=== PATIENT | male | born 1965 | race Caucasian/White ===

== ENCOUNTER 2020-12-27 09:46 | Emergency (ER) | payer OTHER, SELFPAY ==
--- NOTE | 2020-12-27 | ECG_ITS ---
Test Reason : DIZINESS Blood Pressure : / mmHG Vent. Rate : 058 BPM Atrial Rate : 058 BPM P-R Int : 144 ms QRS Dur : 094 ms QT Int : 390 ms P-R-T Axes : 054 052 053 degrees QTc Int : 382 ms Sinus bradycardia Otherwise normal ECG When compared with ECG of 05-OCT-2018 09:24, No significant change was found Referred By: Generic ED Physician Electronically Signed By:Marvin Holland
--- NOTE | ~2020-12-27 | CT_ITS ---
EXAMINATION: CT HEAD WITHOUT CONTRAST CLINICAL INFORMATION: Dizziness. History of [employer]ATOR shunt. COMPARISON: No prior available studies. TECHNIQUE: Contiguous axial imaging was performed from the skull base to vertex without intravenous administration of contrast. This CT examination was performed using dose optimization techniques as appropriate, variously including the following: *Automated exposure control *Adjustment of mA and/or kV according to patient size (this includes techniques or standardized protocols for targeted exams where dose is matched to indication/reason for exam; i.e. extremities or head) *Use of iterative reconstruction technique DLP: 719 mGy-cm FINDINGS: A right parietal [employer] shunt catheter is in place terminating in the frontal horn of the right lateral ventricle. There is a left frontal catheter which terminates in the frontal horn of the left lateral ventricle, connected to a reservoir at the left frontal scalp vertex. The right lateral ventricle is relatively decompressed. There is no disproportionate dilatation of the left lateral ventricle relative to the sulcal spaces. The third ventricle is relatively normal in caliber. The fourth ventricle appears normal. Patchy areas of low-density change present in the frontal white matter which may be due chronic gliosis from prior catheter placement. Bifrontal lavon holes noted. There is generalized parenchymal volume loss which is greater than expected for patient age. There is no evidence of acute intracranial hemorrhage or territorial infarction. No abnormal mass effect or midline shift is seen. Carcamo to white matter differentiation is well preserved. No extra-axial fluid collections are identified. The remaining osseous structures and soft tissues are normal. The mastoid air cells and visualized portions of the paranasal sinuses are well aerated. CT/CT head/brain wo con IMPRESSION: No acute intracranial pathology. Right parietal [employer] shunt catheter in place with asymmetric decompression of the right lateral ventricle relative to the left lateral ventricle. Otherwise, no disproportionate ventricular enlargement. Suggest correlation with shunt function. Left frontal catheter terminating in the frontal horn of the left lateral ventricle with a left frontal scalp vertex reservoir visible.
--- NOTE | ~2020-12-27 | XR_ITS ---
EXAMINATION: CHEST AND ABDOMEN CLINICAL INFORMATION: Check shunt course COMPARISON: None TECHNIQUE: PA and lateral chest and KUB. FINDINGS: PA and lateral views of the chest do not demonstrate any evidence of acute parenchymal disease, pneumothorax, or pleural effusion. Heart normal size. No evidence of pulmonary edema. There is hyperinflation of the lungs. A right-sided shunt catheter is seen in place with a small what appears to be nonocclusive kink at the level of the superior aspect of the right clavicle. The shunt tube then is seen to course to the abdomen with its tip lying about the right lower pelvis. No disruption of the tube is identified. There is a normal bowel gas pattern without evidence of dilated loops of large or small bowel. Phleboliths seen about the pelvis. Visualized bones essentially unremarkable. XR/XR KUB IMPRESSION: Hyperinflation lungs without acute parenchymal disease. Normal bowel gas pattern within the abdomen and pelvis. Right-sided shunt catheter seen and appears intact along its course to the lower right pelvis. There is a small nonocclusive appearing kink at superior margin of the right clavicle.
--- NOTE | ~2020-12-27 | XR_ITS ---
EXAMINATION: CHEST AND ABDOMEN CLINICAL INFORMATION: Check shunt course COMPARISON: None TECHNIQUE: PA and lateral chest and KUB. FINDINGS: PA and lateral views of the chest do not demonstrate any evidence of acute parenchymal disease, pneumothorax, or pleural effusion. Heart normal size. No evidence of pulmonary edema. There is hyperinflation of the lungs. A right-sided shunt catheter is seen in place with a small what appears to be nonocclusive kink at the level of the superior aspect of the right clavicle. The shunt tube then is seen to course to the abdomen with its tip lying about the right lower pelvis. No disruption of the tube is identified. There is a normal bowel gas pattern without evidence of dilated loops of large or small bowel. Phleboliths seen about the pelvis. Visualized bones essentially unremarkable. XR/XR chest 2V IMPRESSION: Hyperinflation lungs without acute parenchymal disease. Normal bowel gas pattern within the abdomen and pelvis. Right-sided shunt catheter seen and appears intact along its course to the lower right pelvis. There is a small nonocclusive appearing kink at superior margin of the right clavicle.
[2020-12-27 12:48] VITALS: BP 121/77; PULSE 56; RESP 18; TEMP 36.6; O2SAT 97; BMI 24.3
[2020-12-27 14:00] VITALS: BP 122/78; PULSE 62; RESP 18; TEMP 36.6; O2SAT 97
--- NOTE | 2020-12-27 14:29 | ED_ITS ---
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 today while doing telehealth visit with associated increas ed heart rate, walking off balance, and coldness in feet. Admits symptoms are improved at present. Denies headache, visual changes/loss, nausea/vomiting, CP/SOB, abdominal pain, LE edema MD elicited complaint: difficulty walking Related Data Home Medications Medication Instructions Recorded Confirmed cyclosporine [Restasis] 1 drp OPHTHALMIC (EYE) Q12H 12/27/20 12/27/20 omeprazole 20 mg PO BID@0630,1630 12/27/20 12/27/20 Allergies Allergy/AdvReac Type Severity Reaction Status Date / Time phenytoin [From DILANTIN] Allergy Severe Rash Verified 12/27/20 13:05 Review of Systems Review of Systems: Constitutional: No Weight loss, No Fever, No Chills ENT/Mouth: No Nasal Congestion, No Sinus Pain, No Hoarseness, No sore throat, No Rhinorrhea, No Swallowing Difficulty Eyes: No Eye Pain, No Vision Changes Cardiovascular: No Chest Pain, No SOB, No Edema, + Palpitations Respiratory: No Cough, No Dyspnea Gastrointestinal: No Nausea, No Vomiting, No Diarrhea, No Abdominal pain Genitourinary: No Dysuria, No Urinary Frequency, No Hematuria, Musculoskeletal: No joint pain, No Myalgias, No Joint Swelling Skin: No Skin Lesions, No rash Neuro: No Weakness, No Numbness, +Paresthesias, No Loss of Consciousness, +feeling off balance, No Headache Yes all other systems are reviewed and are negative Neurologic: Denies Abnormal speech present [facility] Past Medical History Attestation statement: The following information was validated with the patient. Social History Social History Advance Directives: No Advance Directives Information Provided: Yes Physical Exam Vital Signs: Vital Signs: Last Vital Signs Temp 98 F 12/27/20 14:00 Pulse 55 12/27/20 15:37 Resp 14 12/27/20 15:37 BP 117/75 12/27/20 15:37 Pulse Ox 99 12/27/20 15:37 Body Mass Index 24.3 Const: General: cooperative, healthy appearing, comfortable and no acute distress Orientation/consciousness: patient oriented x3 Limitations: no limitations HENMT: Head: Yes normal to inspection Ears: hearing grossly normal bilaterally General nose exam: Normal external nose present Face and sinus: Yes normal facial exam Throat: Yes posterior oropharynx normal Eyes: General: appearance normal, both eyes and all related structures Pupils: Equal, round and reactive pupils present EOM: EOMs intact bilaterally Neck: Neck: Yes normal visual inspection and Yes no meningeal signs Resp: Effort & Inspection: normal respiratory effort Auscultation: clear to auscultation bilaterally, no rales, no rhonchi and no wheezes Cardio: Rate: regular rate Heart sounds: S1 normal heart sound present and S2 normal heart sound present GI: Inspection: Yes normal to inspection Palpation (GI): Soft to palpation, nontender, no guarding and not rigid Skin: Rashes: no rashes Wounds: no wounds Neuro: General: patient oriented x3, gait normal, tone normal, moves all extremities, no meningeal signs, no focal motor deficits and CN's II-XI intact bilaterally Cranial nerves: Yes Equal, round and reactive pupils present Cognition (Neuro): normal cognition Speech: No Abnormal speech present Gait exam (Neuro): Normal gait present Motor exam (neuro): 5/5 motor strength present throughout, Pronator motor function not present and no tremor noted Coordination: [id number] test normal and Romberg test negative Extrem: General: Yes normal to inspection and Yes no pedal edema NIH Stroke Scale Internal: Initial- Upon Arrival Level of Consciousness: Alert Level of Consciousness Questions: Answers both questions correctly Level of Consciousness Commands: Performs both tasks correctly Best Gaze: Normal Visual: No visual loss Facial Palsy: Normal Motor Arm (Right): No drift Motor Arm (Left): No drift Motor Leg (Right): No drift Motor Leg (Left): No drift Limb Ataxia: Absent Sensory: Normal Best Language: No aphasia Dysarthia: Normal Extinction and Inattention: No abnormality Score: 0 Course Course Course Narrative: -bilirubins mildly elevated, labs otherwise unremarkable CT head/brain wo con IMPRESSION: No acute intracranial pathology. Right parietal [employer] shunt catheter in place with asymmetric decompression of the right lateral ventricle relative to the left lateral ventricle. Otherwise, no disproportionate ventricular enlargement. Suggest correlation with shunt function. Left frontal catheter terminating in the frontal horn of the left lateral ventricle with a left frontal scalp vertex reservoir visible. XR chest 2V IMPRESSION: Hyperinflation lungs without acute parenchymal disease. Normal bowel gas pattern within the abdomen and pelvis. Right-sided shunt catheter seen and appears intact along its course to the lower right pelvis. There is a small nonocclusive appearing kink at superior margin of the right clavicle. >> Neurology consulted. Case discussed with Dr. Hernández who spoke to and evaluated patient, does not believe patient had TIA or requires admission/observation. Patient can be discharged home to follow-up with his neurologist MDM - Dizziness MDM Narrative Medical decision making narrative: 55-year-old male with a past medical history of SAH s/p [employer]ATOR shunt placement, AFib, presented to the ED complaining of sudden onset of feeling off around 9:00 a.m. today while doing telehealth visit with associated increased heart rate, walking off balance, and coldness in feet. On exam VSS, NAD, no focal neuro deficits, ambulating with steady gait. Concern for TIA or ?CVA vs SAH vs metabolic abnormalities. Patient is out of the window for tPA, not candidate. Symptoms are nondisabling. No focal neuro deficits. Plan: EKG, labs, UA, head CT, CXR, KUB Medical Records Attestation: I reviewed the patient's medical records. Lab Data Attestation: I reviewed the patient's lab results. Result diagrams: 12/27/20 15:22 12/27/20 15:22 Labs: Lab Results 12/27/20 12/27/20 12/27/20 Range/Units 15:22 15:22 15:22 WBC 4.9 (4.8-10.8) X10*3/uL RBC 4.48 L (4.60-5.80) X10*6/uL Hgb 14.7 (14.0-18.0) g/dl Hct 42.5 (42-52) % MCV 94.9 (80-98) fL MCH 32.8 (27.0-33.0) pg MCHC 34.6 (31.0-36.0) g/dl RDW 12.1 (11.0-16.0) % Plt Count 125 L (160-400) X10*3/uL MPV 9.3 L (9.4-12.4) fL Immature Gran % (Auto) 0.2 (0.0-0.4) % Neut % (Auto) 56.2 (45-73) % Lymph % (Auto) 33.9 (20-40) % Traverse % (Auto) 7.7 (2-11) % Eos % (Auto) 1.6 (0-4) % Baso % (Auto) 0.4 (0-2) % Lymph # (Auto) 1.7 (1.2-4.9) X10*3/uL Traverse # (Auto) 0.4 (0.1-1.2) X10*3/uL Eos # (Auto) 0.1 (0.0-0.4) X10*3/uL Baso # (Auto) 0.0 (0.0-0.2) X10*3/uL Abs Immat Gran (auto) 0.01 (0.00-0.03) X10*3/uL Absolute Neuts (auto) 2.8 (2.0-8.3) X10*3/uL Absolute Nucleated RBC 0.000 (0.0-0.012) X10*3/uL Nucleated RBC % (auto) 0.0 (0.0-0.2) /100WBC Smear Tech's Comments Not Reportable PT (10.8-13.0) SEC INR (0.9-1.1) APTT (24.1-38.0) SEC Sodium 139 (135-145) mmol/L Potassium 4.2 (3.3-5.1) mmol/L Chloride 104 (96-108) mmol/L Carbon Dioxide 29 (22-29) mmol/L Anion Gap 10 L (12-20) BUN 15 (9-16) mg/dL Creatinine 0.87 (0.5-1.4) mg/dL Estim Creat Clear Calc 91.7 Estimated GFR > 60 Random Glucose 100 (60-115) mg/dL Calcium 9.0 (8.4-10.2) mg/dL Magnesium 2.1 (1.6-2.6) mg/dL Total Bilirubin 2.6 H (0.0-1.0) mg/dL Direct Bilirubin 0.8 H (0.0-0.5) mg/dL AST 18 (5-37) U/L ALT 18 (0-40) U/L Alkaline Phosphatase 60 (39-117) U/L Total Protein 6.8 (6.5-8.0) g/dL Albumin 4.2 (3.5-5.0) g/dL Urine Color Urine Appearance Urine pH (5.0-8.0) Ur Specific Carefree (1.005-1.025) Urine Protein (NEG-TRACE) MG/DL Urine Glucose (UA) (NEG) MG/DL Urine Ketones (NEG) MG/DL Urine Blood (NEG) Urine Nitrite (NEG) Ur Leukocyte Esterase (NEG) COVID-19 (TAMIE) Negative (Negative) COVID-19 Clin Com See Note 12/27/20 12/27/20 Range/Units 15:22 15:41 WBC (4.8-10.8) X10*3/uL RBC (4.60-5.80) X10*6/uL Hgb (14.0-18.0) g/dl Hct (42-52) % MCV (80-98) fL MCH (27.0-33.0) pg MCHC (31.0-36.0) g/dl RDW (11.0-16.0) % Plt Count (160-400) X10*3/uL MPV (9.4-12.4) fL Immature Gran % (Auto) (0.0-0.4) % Neut % (Auto) (45-73) % Lymph % (Auto) (20-40) % Traverse % (Auto) (2-11) % Eos % (Auto) (0-4) % Baso % (Auto) (0-2) % Lymph # (Auto) (1.2-4.9) X10*3/uL Traverse # (Auto) (0.1-1.2) X10*3/uL Eos # (Auto) (0.0-0.4) X10*3/uL Baso # (Auto) (0.0-0.2) X10*3/uL Abs Immat Gran (auto) (0.00-0.03) X10*3/uL Absolute Neuts (auto) (2.0-8.3) X10*3/uL Absolute Nucleated RBC (0.0-0.012) X10*3/uL Nucleated RBC % (auto) (0.0-0.2) /100WBC Smear Tech's Comments PT 13.3 H (10.8-13.0) SEC INR 1.1 (0.9-1.1) APTT 43.0 H (24.1-38.0) SEC Sodium (135-145) mmol/L Potassium (3.3-5.1) mmol/L Chloride (96-108) mmol/L Carbon Dioxide (22-29) mmol/L Anion Gap (12-20) BUN (9-16) mg/dL Creatinine (0.5-1.4) mg/dL Estim Creat Clear Calc Estimated GFR Random Glucose (60-115) mg/dL Calcium (8.4-10.2) mg/dL Magnesium (1.6-2.6) mg/dL Total Bilirubin (0.0-1.0) mg/dL Direct Bilirubin (0.0-0.5) mg/dL AST (5-37) U/L ALT (0-40) U/L Alkaline Phosphatase (39-117) U/L Total Protein (6.5-8.0) g/dL Albumin (3.5-5.0) g/dL Urine Color YELLOW Urine Appearance CLEAR Urine pH 7.0 (5.0-8.0) Ur Specific Carefree 1.010 (1.005-1.025) Urine Protein NEG (NEG-TRACE) MG/DL Urine Glucose (UA) NEG (NEG) MG/DL Urine Ketones NEG (NEG) MG/DL Urine Blood NEG (NEG) Urine Nitrite NEG (NEG) Ur Leukocyte Esterase NEG (NEG) COVID-19 (TAMIE) (Negative) COVID-19 Clin Com Discharge Plan Discharge Clinical Impression: Light-headed Patient Disposition: Home, Self-Care Instructions: Lightheadedness (ED) Additional Instructions: Your blood work Was reassuring today in the ED. the CT scan showed proper functioning of your [employer]PER[employer] shunt, there is nonocclusive kink in your right clavicle area You should follow-up with your neurosurgeon If her symptoms persist or worsen, become more constant, you have nausea/vomiting, headache, visual change or loss, or feel off balance return to the ED Prescriptions: No Action omeprazole 20 mg Capsule,Delayed Release(Dr/Ec) 20 mg PO BID@0630,1630 RF: 0 Restasis 0.05 % Drop[place]rette 1 drp OPHTHALMIC (EYE) Q12H RF: 0 Referrals: William Pak MD [Physician] - 3 days
[2020-12-27 15:33] VITALS: BP 117/70; BP 117/75; PULSE 55
[2020-12-27 15:34] LABS: Basophils Percent Auto 0.4 % (0-2); Hematocrit 42.5 % (42-52); Imm Gran Abs Auto 0.01 X10*3/uL (0.00-0.03); Imm Gran Pct Auto 0.2 % (0.0-0.4); MANUAL DIFF FLAG SCAN; PLT CLUMP 1; Red Cell Distribution Width 12.1 % (11.0-16.0); SCAN SMEAR FLAG 1
[2020-12-27 15:35] VITALS: BP 116/74; PULSE 62
[2020-12-27 15:36] LABS: Eosinophils Absolute Auto 0.1 X10*3/uL (0.0-0.4); Eosinophils Percent Auto 1.6 % (0-4); Hemoglobin 14.7 g/dl (14.0-18.0); Lymphocytes Absolute Auto 1.7 X10*3/uL (1.2-4.9); Lymphocytes Percent Auto 33.9 % (20-40); Mean Corpuscular HGB Conc 34.6 g/dl (31.0-36.0); Mean Corpuscular Hemoglobin 32.8 pg (27.0-33.0); Mean Corpuscular Volume 94.9 fL (80-98); Mean Platelet Volume 9.3 fL (9.4-12.4); Monocytes Absolute Auto 0.4 X10*3/uL (0.1-1.2); Monocytes Percent Auto 7.7 % (2-11); Neutrophils Absolute Auto 2.8 X10*3/uL (2.0-8.3); Neutrophils Percent Auto 56.2 % (45-73); Platelet Count 125 X10*3/uL (160-400); Red Blood Count 4.48 X10*6/uL (4.60-5.80); White Blood Count 4.9 X10*3/uL (4.8-10.8)
[2020-12-27 15:37] VITALS: BP 117/75; PULSE 55; RESP 14; O2SAT 99
[2020-12-27 15:40] LABS: INTERNATIONAL NORM RATIO 1.1 (0.9-1.1); Prothrombin Time 13.3 SEC (10.8-13.0)
[2020-12-27 15:49] LABS: Glucose Urine UA NEG (NEG); Leukocyte Esterase Urine NEG (NEG); Nitrite Urine NEG (NEG); Urine Blood NEG (NEG); Urine Ketones NEG (NEG); Urine Protein NEG (NEG-TRACE)
[2020-12-27 15:51] LABS: Appearance Urine CLEAR; Color Urine YELLOW
[2020-12-27 15:58] LABS: COVID-19 Test Negative (Negative); IDNOW Serial# 9DD0AD1C
[2020-12-27 15:59] LABS: Alanine Aminotransferase 18 U/L (0-40); Albumin Level 4.2 g/dL (3.5-5.0); Alkaline Phosphatase 60 U/L (39-117); Anion Gap 10 (12-20); Aspartate Amino Transferase 18 U/L (5-37); Bilirubin Direct 0.8 mg/dL (0.0-0.5); Bilirubin Total 2.6 mg/dL (0.0-1.0); Blood Urea Nitrogen 15 mg/dL (9-16); Carbon Dioxide 29 mmol/L (22-29); Chloride 104 mmol/L (96-108); Creatinine Clr Calc Pharmacy 91.7; Estimated Glomerular Filt Rate > 60; Glucose Random 100 mg/dL (60-115); Magnesium 2.1 mg/dL (1.6-2.6); Potassium 4.2 mmol/L (3.3-5.1); Sodium 139 mmol/L (135-145); Total Protein 6.8 g/dL (6.5-8.0)
--- NOTE | 2020-12-27 16:34 | PC.NURSE ---
Patient awake and alert. Skin PWD, resp even and non labored, speaking in full, clear sentences. States he is feeling a little better. Cindy NATHAN at beside updating patient on results of CT and x rays. Patient is aware of plan of care for consult with neurologist and to have an MRI.
--- NOTE | 2020-12-27 17:05 | PC.NURSE ---
neurologist at bedside
== END 2020-12-27 17:51 | disposition home or self-care (01) ==
PROVIDERS: Physician Assistant; Emergency Provider Emergency Medicine; PCP Internal Medicine
DX: R42 Dizziness and giddiness (principal); R79.89 Other specified abnormal findings of blood chemistry; Z20.822 Contact with and (suspected) exposure to COVID-19; Z87.820 Personal history of traumatic brain injury; Z98.2 Presence of cerebrospinal fluid drainage device
CPT/HCPCS: 36415; 70450; 71046; 74018; 80048; 80076; 81003; 83735; 85025; 85610; 85730; 87635; 93005; 99285